=== PATIENT | female | born 1950 | race Caucasian/White ===

== ENCOUNTER 2018-12-03 14:25 | Emergency (ER) | payer BC, MEDICARE, OTHER ==
[2018-12-03 14:39] VITALS: TEMP 97.2
[2018-12-03 15:04] VITALS: BP 144/74
[2018-12-03] MEDS ORDERED: TDAP VACCINE 0.5 ML SUS IM ONE ×2 (15:54→15:56)
[2018-12-03] MEDS ORDERED: LIDOCAINE HCL 1% MDV 50 ML SOL SC ONE (15:55)
[2018-12-03] MEDS ORDERED: LIDOCAINE HCL 1% MPF 30 SOL ONE (15:58)
[2018-12-03 17:07] VITALS: PULSE 74; RESP 16; O2SAT 98
== END 2018-12-03 17:00 | disposition home or self-care (01) | DRG 914 ==
LOC: ED 14:25
DX: S67.10XA Crushing injury of unspecified finger(s), initial encounter (principal); S62.602B Fracture of unspecified phalanx of right middle finger, initial encounter for open fracture; S61.312A Laceration without foreign body of right middle finger with damage to nail, initial encounter; S60.10XA Contusion of unspecified finger with damage to nail, initial encounter; W23.0XXA Caught, crushed, jammed, or pinched between moving objects, initial encounter; R23.3 Spontaneous ecchymoses
CPT/HCPCS: 12002; 73140; 90471; 90715; 99284; A6402; J2001